=== PATIENT | female | born 1960 | race American Indian/Alaskan Native ===

== ENCOUNTER 2022-03-06 10:15 | Emergency (ER) | payer SELFPAY ==
[2022-03-06] MEDS ORDERED: SODIUM CHLORIDE 0.9% 500 ML 500 ML IV ONE (11:48)
--- NOTE | 2022-03-06 11:56 | Emergency Department Report ---
HPI - General Chief Complaint: Allergic Reaction PUI?: No Time Seen by Provider: 03/06/22 11:19 - HPI HPI: 61-year-old obese female with a history of hypertension brought in by EMS for angioedema and allergic reaction. Patient states she was in her usual state of health when she was walking in her yard today to go fix a tent, when she felt something bite her on her right ankle. She states she believes she was bitten by ants but is unsure. She subsequently developed itching throughout her entire skin. She states she placed rubbing alcohol on her skin to soothe the itchiness. She subsequently went to take a shower and she states that when she came out of the shower, she notes she had an "knot" in her tongue and that her tongue was swollen and she could not swallow properly. EMS was telephoned. Per nursing documentation, patient was given epinephrine, 50 mg of Benadryl intravenously, and 10 mg of Decadron. Patient states she feels significantly improved and has no difficulty breathing or shortness of breath. No prior history of similar symptoms in the past. She denies any known allergies. Exam patient also states that she currently is taking losartan for blood pressure. Pain currently 0 out of 10. ED Past Medical Hx - Past Medical History Hx Hypertension: Yes - Surgical History Additional Surgical History: - Social History Smoking Status: Current Every Day Smoker Substance Use Type: None - Medications Home Medications: Home Medications Medication Instructions Recorded Confirmed Last Taken Type EPINEPHrine [Epipen] 0.3 mg IJ ONCE 1 Days #1 03/06/22 Unknown Rx Famotidine 40 mg PO DAILY 7 Days #7 03/06/22 Unknown Rx methylPREDNISolone [Medrol 4MG 4 mg PO DAILY 6 Days #21 03/06/22 Unknown Rx DOSEPAK (21 tabs)] ED Review of Systems ROS: Stated complaint: ALLERGIC REACTION Other details as noted in HPI Comment: All other systems reviewed and negative Physical Exam - Physical Exam Vital Signs: Vital Signs 03/06/22 03/06/22 03/06/22 10:18 10:37 10:38 Temperature 98.1 F Pulse Rate 86 97 H 96 H Respiratory 18 19 14 Rate Blood Pressure Blood Pressure 124/76 [Left] O2 Sat by Pulse 100 99 99 Oximetry 03/06/22 03/06/22 03/06/22 10:40 10:42 10:44 Temperature Pulse Rate 101 H 98 H 101 H Respiratory 18 19 21 Rate Blood Pressure 145/81 145/81 145/81 Blood Pressure [Left] O2 Sat by Pulse 100 99 99 Oximetry 03/06/22 03/06/22 03/06/22 10:46 10:48 10:50 Temperature Pulse Rate 99 H 96 H 98 H Respiratory 22 20 22 Rate Blood Pressure 145/81 145/81 145/81 Blood Pressure [Left] O2 Sat by Pulse 99 96 98 Oximetry 03/06/22 03/06/22 03/06/22 10:52 10:54 10:56 Temperature Pulse Rate 97 H 95 H 93 H Respiratory 22 22 17 Rate Blood Pressure 145/81 145/81 145/81 Blood Pressure [Left] O2 Sat by Pulse 97 97 96 Oximetry 03/06/22 03/06/22 03/06/22 10:58 11:00 11:02 Temperature Pulse Rate 91 H 94 H 95 H Respiratory 18 21 22 Rate Blood Pressure 145/81 145/81 145/81 Blood Pressure [Left] O2 Sat by Pulse 97 97 96 Oximetry 03/06/22 03/06/22 03/06/22 11:04 11:06 11:08 Temperature Pulse Rate 93 H 91 H 94 H Respiratory 19 18 14 Rate Blood Pressure 145/81 145/81 145/81 Blood Pressure [Left] O2 Sat by Pulse 98 98 98 Oximetry 03/06/22 03/06/22 03/06/22 11:10 11:12 11:14 Temperature Pulse Rate 94 H 92 H 95 H Respiratory 24 21 22 Rate Blood Pressure 145/81 145/81 145/81 Blood Pressure [Left] O2 Sat by Pulse 99 98 100 Oximetry 03/06/22 03/06/22 03/06/22 11:16 11:18 11:20 Temperature Pulse Rate 94 H 96 H 95 H Respiratory 19 18 19 Rate Blood Pressure 145/81 145/81 145/81 Blood Pressure [Left] O2 Sat by Pulse 100 100 99 Oximetry 03/06/22 03/06/22 03/06/22 11:22 11:24 11:26 Temperature Pulse Rate 96 H 94 H 94 H Respiratory 21 20 16 Rate Blood Pressure 145/81 145/81 139/80 Blood Pressure [Left] O2 Sat by Pulse 98 100 100 Oximetry 03/06/22 11:28 Temperature Pulse Rate 97 H Respiratory 21 Rate Blood Pressure 139/80 Blood Pressure [Left] O2 Sat by Pulse 98 Oximetry General: Gen: pt is well appearing, no acute distress, loquacious, speaking in full sentences, looking and typing on her personal cellular telephone, no drooling no stridor no respiratory distress, breathing unlabored, nontoxic-appearing HEENT: Normocephalic atraumatic pupils equally round and reactive to light extraocular muscles intact sclera anicteric uvula midline without edema, no angioedema, no macroglossia, no Anthony's angina, tonsils are symmetric and nonenlarged without petechiae or exudates, dentition is grossly unremarkable, no visible evidence of dental abscesses Neck: Full range of motion, no midline spinal tenderness palpation, no JVD, no carotid bruits, no nuchal rigidity CVS: S1-S2 regular rate and rhythm with no gallops rubs or murmurs, chest wall nontender Pulmonary: Clear to auscultation bilaterally, no wheezes rales or rhonchi Abdomen: Soft nondistended nontender no guarding or rebound tenderness, no palpable deformities or step-offs, normal active bowel sounds, no hepatosplenomegaly, no pulsatile masses : Deferred Extremities: No cyanosis no clubbing no edema, intact distal peripheral pulses, Integumentary: Skin normal, no petechia no purpura no abscess no lacerations no evidence of trauma no evidence of infection Neuro: Patient is awake alert and oriented to person place time situation, mentating well, cranial nerves II through XII intact, no focal neurodeficits, sensation grossly tact Psych: Calm cooperative, mood affect normal ED Course Vital Signs 03/06/22 03/06/22 03/06/22 10:18 10:37 10:38 Temperature 98.1 F Pulse Rate 86 97 H 96 H Respiratory 18 19 14 Rate Blood Pressure Blood Pressure 124/76 [Left] O2 Sat by Pulse 100 99 99 Oximetry 03/06/22 03/06/22 03/06/22 10:40 10:42 10:44 Temperature Pulse Rate 101 H 98 H 101 H Respiratory 18 19 21 Rate Blood Pressure 145/81 145/81 145/81 Blood Pressure [Left] O2 Sat by Pulse 100 99 99 Oximetry 03/06/22 03/06/22 03/06/22 10:46 10:48 10:50 Temperature Pulse Rate 99 H 96 H 98 H Respiratory 22 20 22 Rate Blood Pressure 145/81 145/81 145/81 Blood Pressure [Left] O2 Sat by Pulse 99 96 98 Oximetry 03/06/22 03/06/22 03/06/22 10:52 10:54 10:56 Temperature Pulse Rate 97 H 95 H 93 H Respiratory 22 22 17 Rate Blood Pressure 145/81 145/81 145/81 Blood Pressure [Left] O2 Sat by Pulse 97 97 96 Oximetry 03/06/22 03/06/22 03/06/22 10:58 11:00 11:02 Temperature Pulse Rate 91 H 94 H 95 H Respiratory 18 21 22 Rate Blood Pressure 145/81 145/81 145/81 Blood Pressure [Left] O2 Sat by Pulse 97 97 96 Oximetry 03/06/22 03/06/22 03/06/22 11:04 11:06 11:08 Temperature Pulse Rate 93 H 91 H 94 H Respiratory 19 18 14 Rate Blood Pressure 145/81 145/81 145/81 Blood Pressure [Left] O2 Sat by Pulse 98 98 98 Oximetry 03/06/22 03/06/22 03/06/22 11:10 11:12 11:14 Temperature Pulse Rate 94 H 92 H 95 H Respiratory 24 21 22 Rate Blood Pressure 145/81 145/81 145/81 Blood Pressure [Left] O2 Sat by Pulse 99 98 100 Oximetry 03/06/22 03/06/22 03/06/22 11:16 11:18 11:20 Temperature Pulse Rate 94 H 96 H 95 H Respiratory 19 18 19 Rate Blood Pressure 145/81 145/81 145/81 Blood Pressure [Left] O2 Sat by Pulse 100 100 99 Oximetry 03/06/22 03/06/22 03/06/22 11:22 11:24 11:26 Temperature Pulse Rate 96 H 94 H 94 H Respiratory 21 20 16 Rate Blood Pressure 145/81 145/81 139/80 Blood Pressure [Left] O2 Sat by Pulse 98 100 100 Oximetry 03/06/22 11:28 Temperature Pulse Rate 97 H Respiratory 21 Rate Blood Pressure 139/80 Blood Pressure [Left] O2 Sat by Pulse 98 Oximetry - Reevaluation(s) Reevaluation #1: 03/06/22 11:57 Patient reassessed. She is comfortable and well-appearing, she denies any complaints, she is speaking in full sentences, she is tolerating her oral secretions without difficulty, her vitals are stable, will continue to monitor 03/06/22 11:57 Reevaluation #2: 03/06/22 13:10 Patient reassessed. Vitals are stable. Her airway remains patent and intact. Oropharynx reevaluated patient has no angioedema, no macroglossia, no Anthony's angina. She is tolerating her oral secretions without difficulty and she denies any difficulty breathing shortness of breath throat tightness chest pain dizziness or any other symptoms at this time. Patient is adamant that she wants to be discharged home stating she has a green party to attend does not want to remain in the emergency department longer. Plan will be to discharge the patient to home per her request ED Medical Decision Making - Medical Decision Making This is a 61-year-old female with history of obesity, hypertension, who presents for evaluation of allergic reaction and angioedema secondary to insect sting or bite of unclear etiology. EMS not readily available at the time of this provider's shift start time but per nursing documentation, the patient had received epinephrine, Benadryl, and Decadron by EMS personnel prior to arrival for angioedema. Upon arrival here the patient denies any symptoms. She was given famotidine for additional supportive care as well as normal saline. She was observed for several hours here in the emergency department and underwent multiple reassessments by me at her bedside. She had no evidence of active or impending airway compromise or systemic involvement in the setting of her previous allergic reaction and angioedema. Patient was advised to remain further for continued observation in the ER but she refused, stating that she wanted to be discharged to home. Patient to be discharged to home per her request. She will be given a prescription for Medrol Dosepak, Benadryl, famotidine, and epinephrine pen. She is advised to continue the first 3 medications as directed and to use epinephr ine if she develops any acute onset of difficulty breathing or shortness of breath. She is advised to take Benadryl at home as needed for itching. No further emergent work-up warranted. Patient discharged home per her request Critical Care Time: No Critical care attestation.: If time is entered above; I have spent that time in minutes in the direct care of this critically ill patient, excluding procedure time. ED Disposition Clinical Impression: Allergic reaction Disposition: HOME / SELF CARE / HOMELESS Is pt being admited?: No Does the pt Need Aspirin: No Condition: Stable Instructions: How to Use an Auto-Injector Pen Additional Instructions: You have been placed on several medications to prevent recurrent symptoms of an allergic reaction. Strongly advised that you purchase Benadryl to use at home, if you do not currently have this medication. Take Benadryl 25 mg by mouth every 6 hours as needed for any itching you may develop. Take the following medications as well below: 1. Medrol Dose pack (steroid prescription, take until completed, start on 03/07/2022) 2. Famotidine 40mg by mouth daily (start on 03/07/2022) 3. Epinephrine pen (use once, as needed for new onset of difficulty breathing, shortness of breath, or trouble swallowing your saliva) Follow up with your primary care doctor within 1-2 business days for immediate follow-up and reassessment. This is very important. Return to the nearest emergency department soon as possible if you need to use your epinephrine pen, if you develop difficulty breathing, shortness of breath, persistent chest pain, lightheadedness or dizziness, or if any other new worrisome symptoms develop Prescriptions: EPINEPHrine [Epipen] 0.3 mg IJ ONCE 1 Days #1 Famotidine 40 mg PO DAILY 7 Days #7 methylPREDNISolone [Medrol 4MG DOSEPAK (21 tabs)] 4 mg PO DAILY 6 Days #21
[2022-03-06] MEDS ORDERED: FAMOTIDINE 20 MG/2 ML INJ IV ONE (12:44)
[2022-03-06 13:44] VITALS: BP 134/71
== END 2022-03-06 13:45 | disposition home or self-care (01) ==
LOC: ED 10:15
DX: T78.40XA Allergy, unspecified, initial encounter (principal); I10 Essential (primary) hypertension; F17.200 Nicotine dependence, unspecified, uncomplicated; Z98.890 Other specified postprocedural states; Z79.899 Other long term (current) drug therapy; X58.XXXA Exposure to other specified factors, initial encounter
CPT/HCPCS: 96374; 99283; J3490; J7040